=== PATIENT | female | born 1955 | race Caucasian/White ===

== ENCOUNTER → 2017-05-24 | Outpatient (CLI) | payer OTHER ==
[~2017-05-24] MED LIST: CIPRODEX 0.3%-7.5 M1 OT; CIPROFLOXACIN500 MG PO; LISINOPRIL10 MG PO; NASONEX0.05 MG/AC NS; PRAVACHOL10 MG PO; VICODIN 500 MG-1 TAB PO; ZYRTEC10 MG PO
== END | disposition home or self-care (01) ==
LOC: RAD 10:30
DX: M50.322 Other cervical disc degeneration at C5-C6 level (principal); M25.512 Pain in left shoulder

== ENCOUNTER → 2017-11-28 | Outpatient (CLI) | payer OTHER ==
[2017-11-28 17:12] LABS: BASO % 0.6 % (0.0-1.0); EOS # 0.1 10*3/uL (0.0-0.4); EOS % 1.5 % (1.0-4.0); HEMOGLOBIN 13.4 g/dl (12.0-16.0); LYMPH # 0.8 10*3/uL (1.3-4.4); LYMPH % 12.6 % (27.0-41.0); MEAN CELL VOLUME 90.3 fl (81.0-99.0); MEAN CORPUSCULAR HGB 29.5 pg (27.0-31.0); MEAN CORPUSCULAR HGB CONC 32.7 g/dl (33.0-37.0); MEAN PLATELET VOLUME 12.4 fl (9.6-12.3); MONO # 0.5 10*3/uL (0.1-1.0); MONO % 6.9 % (3.0-9.0); NEUT # 5.1 10*3/uL (2.3-7.9); NEUT % 78.2 % (47.0-73.0); PLATELET COUNT AUTOMATED 69 10*3/uL (130-400); RED BLOOD COUNT 4.54 10*6/uL (4.10-5.10); RED CELL DISTRI WIDTH 11.7 % (0-14.5); WHITE BLOOD COUNT 6.5 10*3/uL (4.8-10.8)
[2017-11-28 17:26] LABS: ALBUMIN 3.9 gm/dl (3.1-4.5); ALKALINE PHOSPHATASE 84 U/L (45-117); BUN 18 mg/dl (7-24); CHLORIDE 105 mmol/L (98-107); CHOLESTEROL 196 mg/dL (<200); CREATININE 0.96 mg/dL (0.55-1.02); HDL CHOLESTEROL 58 mg/dl (40-60); LDL CHOLESTEROL 76 mg/dL (9-159); POTASSIUM 4.3 mmol/L (3.5-5.1); SGOT/AST 20 IU/L (3-35); SGPT/ALT 27 U/L (12-78); SODIUM 141 mmol/L (136-145); TOTAL PROTEIN 7.3 gm/dL (6.4-8.2); TRIGLYCERIDES 308 mg/dl (<150); VLDL CHOLESTEROL 62 mg/dL (6-40)
== END | disposition home or self-care (01) ==
LOC: LAB 16:53 → MAMMO 17:00
PROVIDERS: Internal Medicine
DX: Z12.31 Encounter for screening mammogram for malignant neoplasm of breast (principal); I10 Essential (primary) hypertension; E78.2 Mixed hyperlipidemia

== ENCOUNTER → 2017-12-11 | Outpatient (CLI) | payer OTHER ==
[2017-12-11 14:13] LABS: BASO % 0.7 % (0.0-1.0); EOS # 0.1 10*3/uL (0.0-0.4); EOS % 1.6 % (1.0-4.0); HEMATOCRIT 40.9 % (37.0-47.0); HEMOGLOBIN 13.4 g/dl (12.0-16.0); LYMPH # 1.5 10*3/uL (1.3-4.4); LYMPH % 26.6 % (27.0-41.0); MEAN CELL VOLUME 88.7 fl (81.0-99.0); MEAN CORPUSCULAR HGB 29.1 pg (27.0-31.0); MEAN CORPUSCULAR HGB CONC 32.8 g/dl (33.0-37.0); MONO # 0.5 10*3/uL (0.1-1.0); MONO % 8.5 % (3.0-9.0); NEUT # 3.5 10*3/uL (2.3-7.9); NEUT % 62.1 % (47.0-73.0); PLATELET COUNT AUTOMATED 145 10*3/uL (130-400); RED BLOOD COUNT 4.61 10*6/uL (4.10-5.10); RED CELL DISTRI WIDTH 11.8 % (0-14.5); WHITE BLOOD COUNT 5.7 10*3/uL (4.8-10.8)
== END | disposition home or self-care (01) ==
LOC: LAB 13:27
PROVIDERS: Internal Medicine
DX: D69.6 Thrombocytopenia, unspecified (principal)

== ENCOUNTER → 2020-04-07 | Outpatient (CLI) | payer OTHER | END | disposition home or self-care (01) | LOC: MAMMO 14:57 | DX: Z12.31 Encounter for screening mammogram for malignant neoplasm of breast (principal) ==

== ENCOUNTER → 2020-09-14 | Outpatient (CLI) | payer OTHER | END | disposition home or self-care (01) | LOC: COVID19 11:30 | PROVIDERS: ATTEND Family Medicine | DX: R05 Cough (principal); Z20.828 Contact with and (suspected) exposure to other viral communicable diseases ==

== ENCOUNTER → 2021-07-19 | Outpatient (CLI) | payer OTHER | END | disposition home or self-care (01) | LOC: COVID19 17:20 | PROVIDERS: ATTEND Internal Medicine | DX: Z11.52 Encounter for screening for COVID-19 (principal) ==

== ENCOUNTER → 2022-03-10 | Outpatient (CLI) | payer OTHER | END | disposition home or self-care (01) | LOC: MAMMO 08:00 | PROVIDERS: ATTEND Family Medicine | DX: Z12.31 Encounter for screening mammogram for malignant neoplasm of breast (principal); N64.59 Other signs and symptoms in breast ==

== ENCOUNTER 2022-09-12 17:36 | Inpatient (IN) | payer OTHER ==
[~2022-09-12] VITALS: Ht 172.7 cm; Wt 74.2 kg
[~2022-09-12 17:36] MED LIST changes: +LEXAPRO5 M1 PO
[2022-09-12 17:52] VITALS: BP 113/66
[2022-09-12 19:10] VITALS: BP 118/70
[2022-09-12 20:15] LABS: CREATININE 1.39 mg/dL (0.55-1.02); POTASSIUM 2.6 mmol/L (3.5-5.1); TOTAL PROTEIN 5.5 gm/dL (6.4-8.2)
[2022-09-12 20:22] LABS: BILIRUBIN Negative (Negative); BLOOD 2+ (Negative); CLARITY Turbid (Clear); COLOR Dark Yellow (Yellow); GLUCOSE Negative (Negative); KETONE Trace (Negative); LEUKO ESTERASE 3+ (Negative); NITRITE Negative (Negative); SPECIFIC GRAVITY 1.015 (1.001-1.030)
[2022-09-12 20:36] LABS: WBC TNTC wbc/hpf (0-5)
[2022-09-12 20:41] LABS: MEAN CELL VOLUME 103.1 fl (81.0-99.0); MEAN CORPUSCULAR HGB 34.5 pg (27.0-31.0); MEAN CORPUSCULAR HGB CONC 33.5 g/dl (33.0-37.0); MEAN PLATELET VOLUME 13.4 fl (9.6-12.3); RED BLOOD COUNT 2.23 10*6/uL (4.10-5.10); RED CELL DISTRI WIDTH 16.1 % (0-14.5); WHITE BLOOD COUNT 6.2 10*3/uL (4.8-10.8)
[2022-09-12 20:47] LABS: MANUAL DIFF REFLEX YES; PLATELET COUNT AUTOMATED 8 10*3/uL (130-400)
[2022-09-12 21:01] LABS: BURR CELLS MODERATE; PLATELET SUFFICIENCY LOW (NORMAL); POLYCHROMASIA SLIGHT; TOTAL CELLS COUNTED 100 #CELLS
[2022-09-12 22:56] VITALS: BP 117/49
[2022-09-13] VITALS (25 sets, daily range): BP systolic 104–145; BP diastolic 48–81
[2022-09-13] MEDS ORDERED: LISINOPRIL20 MG PO (01:25)
[2022-09-13] MEDS ORDERED: ESCITALOPRAM OX10 MG PO (01:25)
[2022-09-13] MEDS ORDERED: POTASSIUM CHLO20 ME4 PO (01:26)
[2022-09-13] MEDS ORDERED: PRAVASTATIN SOD40 MG PO (01:27)
[2022-09-13 06:19] LABS: ACT PARTIAL THROMBO TIME 35.6 SECONDS (20.0-32.1); INTERNATIONAL NORM RATIO 1.6 (2.0-3.5)
[2022-09-13 06:31] LABS: CREATININE 1.21 mg/dL (0.55-1.02); FREE T4 1.34 ng/dl (0.76-1.46); POTASSIUM 3.2 mmol/L (3.5-5.1); TOTAL PROTEIN 4.9 gm/dL (6.4-8.2)
[2022-09-13 06:32] LABS: MEAN CELL VOLUME 103.5 fl (81.0-99.0); MEAN CORPUSCULAR HGB 34.2 pg (27.0-31.0); RED BLOOD COUNT 1.99 10*6/uL (4.10-5.10); RED CELL DISTRI WIDTH 16.3 % (0-14.5); WHITE BLOOD COUNT 5.5 10*3/uL (4.8-10.8)
[2022-09-13 06:36] LABS: THYROID STIM HORMONE (HS) 0.372 uIU/ml (0.358-4.75)
[2022-09-13 06:38] LABS: MANUAL DIFF REFLEX YES
[2022-09-13 06:42] LABS: HEMATOCRIT 20.6 % (37.0-47.0); PLATELET COUNT AUTOMATED 7 10*3/uL (130-400)
[2022-09-13 07:24] LABS: ATYPICAL LYMPHS 2 % (0-0); PLATELET SUFFICIENCY LOW (NORMAL); TOTAL CELLS COUNTED 100 #CELLS
[2022-09-13 07:25] LABS: OVALOCYTES FEW; POLYCHROMASIA SLIGHT; ROULEAUX SLIGHT; TOXIC GRANULATION MARKED; VACUOLATION OF NEUTROPHILS SLIGHT
[2022-09-13 08:29] LABS: VITAMIN D, 25-HYDROXY 34.1 ng/mL (30-100)
[2022-09-13 18:52] LABS: HEMATOCRIT 24.7 % (37.0-47.0); MEAN CORPUSCULAR HGB 34.1 pg (27.0-31.0); MEAN PLATELET VOLUME 12.5 fl (9.6-12.3); RED BLOOD COUNT 2.46 10*6/uL (4.10-5.10); RED CELL DISTRI WIDTH 17.7 % (0-14.5); WHITE BLOOD COUNT 6.8 10*3/uL (4.8-10.8)
[2022-09-13 18:53] LABS: MEAN CELL VOLUME 100.4 fl (81.0-99.0)
[2022-09-13 18:54] LABS: MANUAL DIFF REFLEX YES; PLATELET COUNT AUTOMATED 17 10*3/uL (130-400)
[2022-09-13 19:23] LABS: PLATELET SUFFICIENCY LOW (NORMAL); TOTAL CELLS COUNTED 100 #CELLS
[2022-09-13 19:24] LABS: POLYCHROMASIA SLIGHT
[2022-09-13 19:25] LABS: TOXIC GRANULATION MARKED
[2022-09-14] VITALS: BP 138/62
[2022-09-14 06:11] LABS: BUN 24 mg/dl (7-24); CHLORIDE 101 mmol/L (98-107); CREATININE 1.02 mg/dL (0.55-1.02); SODIUM 137 mmol/L (136-145)
[2022-09-14 06:31] LABS: RETICULOCYTE % 0.29 % (0.50-2.50)
[2022-09-14 06:39] LABS: HEMATOCRIT 22.3 % (37.0-47.0); MEAN CELL VOLUME 101.4 fl (81.0-99.0); MEAN CORPUSCULAR HGB 33.6 pg (27.0-31.0); MEAN CORPUSCULAR HGB CONC 33.2 g/dl (33.0-37.0); MEAN PLATELET VOLUME 10.8 fl (9.6-12.3); PLATELET COUNT AUTOMATED 34 10*3/uL (130-400); RED CELL DISTRI WIDTH 18.4 % (0-14.5); WHITE BLOOD COUNT 7.4 10*3/uL (4.8-10.8)
[2022-09-14 06:40] LABS: MANUAL DIFF REFLEX YES
[2022-09-14 07:31] LABS: ATYPICAL LYMPHS 1 % (0-0); OVALOCYTES FEW; PLATELET SUFFICIENCY LOW (NORMAL); POLYCHROMASIA SLIGHT; TOTAL CELLS COUNTED 100 #CELLS; TOXIC GRANULATION MARKED
[2022-09-14 07:32] LABS: ROULEAUX SLIGHT
[2022-09-14 08:00] VITALS: BP 153/74
[2022-09-14] MEDS ORDERED: POTASSIUM CHLO20 ME3 PO (11:28)
[2022-09-14] MEDS ORDERED: CEFUROXIME AXE500 MG PO (11:30)
[2022-09-14 12:00] VITALS: BP 140/69
== END 2022-09-14 15:29 | disposition home or self-care (01) | DRG 689 ==
LOC: ED 17:36 → 5E 23:45 → EDHOLD 23:45 → 5E 09-13 00:12
PROVIDERS: Emergency Medicine; Internal Medicine; Registered Nurse; Student in an Organized Health Care Education/Training Program; ADMIT Internal Medicine; ATTEND Internal Medicine
PROC: 30233R1 Transfusion of Nonautologous Platelets into Peripheral Vein, Percutaneous Approach (ICD-10-PCS; principal; 2022-09-13)
PROC: 30233N1 Transfusion of Nonautologous Red Blood Cells into Peripheral Vein, Percutaneous Approach (ICD-10-PCS; 2022-09-13)
DX: N30.01 Acute cystitis with hematuria (principal); E43 Unspecified severe protein-calorie malnutrition; N17.0 Acute kidney failure with tubular necrosis; E87.1 Hypo-osmolality and hyponatremia; D53.9 Nutritional anemia, unspecified; E83.42 Hypomagnesemia; F41.9 Anxiety disorder, unspecified; E87.6 Hypokalemia; I10 Essential (primary) hypertension; F32.9 Major depressive disorder, single episode, unspecified; D69.6 Thrombocytopenia, unspecified; E80.6 Other disorders of bilirubin metabolism; E87.8 Other disorders of electrolyte and fluid balance, not elsewhere classified; R73.9 Hyperglycemia, unspecified; C50.412 Malignant neoplasm of upper-outer quadrant of left female breast; F32.A Depression, unspecified; Z85.3 Personal history of malignant neoplasm of breast; Z92.21 Personal history of antineoplastic chemotherapy; Z82.49 Family history of ischemic heart disease and other diseases of the circulatory system; Z81.8 Family history of other mental and behavioral disorders; Z68.24 Body mass index [BMI] 24.0-24.9, adult

== ENCOUNTER → 2022-12-13 | Outpatient (CLI) | payer OTHER ==
[~2022-12-13] MED LIST changes: +CEFUROXIME AXE500 MG PO; +ESCITALOPRAM OX10 MG PO; +LISINOPRIL20 MG PO; +POTASSIUM CHLO20 ME3 PO; +POTASSIUM CHLO20 ME4 PO; +PRAVASTATIN SOD40 MG PO
== END | disposition home or self-care (01) ==
LOC: CARD 11:30
PROVIDERS: ATTEND Internal Medicine Hematology & Oncology
DX: C50.912 Malignant neoplasm of unspecified site of left female breast (principal); D70.1 Agranulocytosis secondary to cancer chemotherapy; Z45.2 Encounter for adjustment and management of vascular access device; E86.0 Dehydration; R11.0 Nausea; Z51.12 Encounter for antineoplastic immunotherapy; Z51.11 Encounter for antineoplastic chemotherapy; I35.0 Nonrheumatic aortic (valve) stenosis

== ENCOUNTER 2024-01-02 18:44 | Inpatient (IN) | payer MEDICARE ==
[~2024-01-02] VITALS: Ht 177.8 cm; Wt 91.0 kg
[2024-01-02 19:06] VITALS: BP 184/87
[2024-01-02 19:19] LABS: BASO % 0.5 % (0.0-1.0); EOS # 0.1 10*3/uL (0.0-0.4); EOS % 1.1 % (1.0-4.0); LYMPH # 1.1 10*3/uL (1.3-4.4); LYMPH % 18.2 % (27.0-41.0); MEAN CELL VOLUME 93.4 fl (81.0-99.0); MEAN CORPUSCULAR HGB 29.4 pg (27.0-31.0); MEAN CORPUSCULAR HGB CONC 31.5 g/dl (33.0-37.0); MEAN PLATELET VOLUME 10.8 fl (9.6-12.3); MONO # 0.4 10*3/uL (0.1-1.0); MONO % 6.6 % (3.0-9.0); NEUT # 4.5 10*3/uL (2.3-7.9); NEUT % 73.3 % (47.0-73.0); PLATELET COUNT AUTOMATED 104 10*3/uL (130-400); RED BLOOD COUNT 4.39 10*6/uL (4.10-5.10); RED CELL DISTRI WIDTH 12.2 % (0-14.5); WHITE BLOOD COUNT 6.2 10*3/uL (4.8-10.8)
[2024-01-02] MEDS ORDERED: PRAVASTATIN SOD40 MG PO (19:24)
[2024-01-02] MEDS ORDERED: NEURONTIN300 MG PO (19:25)
[2024-01-02 19:34] VITALS: BP 193/87
[2024-01-02 19:39] LABS: ACT PARTIAL THROMBO TIME 23.6 SECONDS (20.0-32.1)
[2024-01-02 19:40] LABS: ALKALINE PHOSPHATASE 96 U/L (46-116); BUN 19 mg/dl (9-23); CHLORIDE 106 mmol/L (98-107); LIPASE 35 U/L (12-53); POTASSIUM 3.9 mmol/L (3.4-5.1); SGPT/ALT 11 U/L (5-49); TOTAL PROTEIN 6.9 gm/dL (6.0-8.0)
[2024-01-02 20:54] VITALS: BP 183/88
[2024-01-02 21:24] LABS: BILIRUBIN Negative (Negative); BLOOD Negative (Negative); CLARITY Clear (Clear); COLOR Yellow (Yellow); GLUCOSE Negative (Negative); KETONE Negative (Negative); LEUKO ESTERASE Negative (Negative); NITRITE Negative (Negative); PH 5.5 (4.5-8.0); SPECIFIC GRAVITY <= 1.005 (1.001-1.030); UROBILINOGEN 0.2 E.U./dl (0.0-1.0)
[2024-01-02 21:40] LABS: HYALINE CAST 0-2; RBC 0-2 rbc/hpf (0-2); WBC 0-2 wbc/hpf (0-5)
[2024-01-02] MEDS ORDERED: Ondansetron Hydrochloride 4 MG/2 ML VIAL IV PRN (22:50)
[2024-01-02] MEDS ORDERED: BISACODYL 10 MG SUPP R PRN (22:50)
[2024-01-02] MEDS ORDERED: BISACODYL 5 MG TAB PO PRN (22:50)
[2024-01-02] MEDS ORDERED: TEMAZEPAM 15 MG CAP PO PRN (22:50)
[2024-01-02] MEDS ORDERED: ACETAMINOPHEN 325 MG TAB PO PRN (22:50)
[2024-01-02 22:56] VITALS: BP 186/78
[2024-01-02] MEDS ORDERED: IOHEXOL 350 MG/ML 100 ML VIAL IV ONE ×2 (23:05→23:23)
[2024-01-02] MEDS ORDERED: SODIUM CHLORIDE 0.9% 100 ML BAG IV ONE (23:05)
[2024-01-02 23:15] VITALS: BP 169/97
[2024-01-02] MEDS ORDERED: SODIUM CHLORIDE 0.9% 100 ML IV ONE (23:22)
[2024-01-03 06:41] LABS: BASO % 0.5 % (0.0-1.0); EOS # 0.1 10*3/uL (0.0-0.4); EOS % 0.8 % (1.0-4.0); HEMATOCRIT 42.3 % (37.0-47.0); LYMPH # 1.7 10*3/uL (1.3-4.4); LYMPH % 21.8 % (27.0-41.0); MEAN CELL VOLUME 92.6 fl (81.0-99.0); MEAN CORPUSCULAR HGB 29.1 pg (27.0-31.0); MEAN CORPUSCULAR HGB CONC 31.4 g/dl (33.0-37.0); MEAN PLATELET VOLUME 11.2 fl (9.6-12.3); MONO # 0.6 10*3/uL (0.1-1.0); MONO % 8.1 % (3.0-9.0); NEUT # 5.3 10*3/uL (2.3-7.9); NEUT % 68.5 % (47.0-73.0); PLATELET COUNT AUTOMATED 115 10*3/uL (130-400); RED BLOOD COUNT 4.57 10*6/uL (4.10-5.10); RED CELL DISTRI WIDTH 12.4 % (0-14.5); WHITE BLOOD COUNT 7.7 10*3/uL (4.8-10.8)
[2024-01-03 06:50] LABS: POTASSIUM 4.3 mmol/L (3.4-5.1)
[2024-01-03 08:00] VITALS: BP 176/83
[2024-01-03] MEDS ORDERED: PRAVASTATIN SODIUM 40 MG TAB PO SCH (10:00)
[2024-01-03] MEDS ORDERED: Enoxaparin Sodium 40 MG/0.4 ML SYR SC SCH (10:00)
[2024-01-03] MEDS ORDERED: LISINOPRIL 20 MG TAB PO SCH (10:00)
[2024-01-03] MEDS ORDERED: ASPIRIN ENTERIC COATED 81 MG TAB PO SCH (10:00)
[2024-01-03] MEDS ORDERED: Clopidogrel Hydrogen Sulfate 75 MG TAB PO SCH (10:00)
[2024-01-03 12:00] VITALS: BP 155/85
[2024-01-03] MEDS ORDERED: ATORVASTATIN CALCIUM 10 MG TAB PO SCH (22:00)
[2024-01-03] MEDS ORDERED: GABAPENTIN 300 MG CAP PO SCH (22:00)
== END 2024-01-03 16:36 | disposition home or self-care (01) | DRG 70 ==
LOC: ED 18:44 → 4E 22:22 → EDHOLD 22:22 → 4E 22:56
PROVIDERS: Emergency Medicine; Internal Medicine; ADMIT Family Medicine; ATTEND Family Medicine
DX: G45.4 Transient global amnesia (principal); G93.41 Metabolic encephalopathy; R47.01 Aphasia; I16.1 Hypertensive emergency; N18.30 Chronic kidney disease, stage 3 unspecified; G44.89 Other headache syndrome; E78.2 Mixed hyperlipidemia; D69.6 Thrombocytopenia, unspecified; N18.31 Chronic kidney disease, stage 3a; I12.9 Hypertensive chronic kidney disease with stage 1 through stage 4 chronic kidney disease, or unspecified chronic kidney disease; Z82.49 Family history of ischemic heart disease and other diseases of the circulatory system; Z82.0 Family history of epilepsy and other diseases of the nervous system

== ENCOUNTER 2024-02-24 10:56 | Inpatient (IN) | payer MEDICARE ==
[~2024-02-24] VITALS: Ht 172.7 cm; Wt 86.2 kg
[~2024-02-24 10:56] MED LIST changes: +NEURONTIN300 MG PO
[2024-02-24 11:32] VITALS: BP 140/730
[2024-02-24] MEDS ORDERED: Lidocaine Hydrochloride 15 ML UDC PO STA (11:45)
[2024-02-24] MEDS ORDERED: MG-AL HYDROXIDE/SIMETICONE 30 ML UDC PO STA (11:45)
[2024-02-24] MEDS ORDERED: Dicyclomine Hydrochloride 20 MG/10 ML OSYR PO STA (11:45)
[2024-02-24 12:15] LABS: BASO % 0.4 % (0.0-1.0); EOS # 0.1 10*3/uL (0.0-0.4); EOS % 0.7 % (1.0-4.0); HEMATOCRIT 40.8 % (37.0-47.0); LYMPH # 0.7 10*3/uL (1.3-4.4); LYMPH % 9.6 % (27.0-41.0); MEAN CELL VOLUME 93.8 fl (81.0-99.0); MEAN CORPUSCULAR HGB 29.7 pg (27.0-31.0); MEAN CORPUSCULAR HGB CONC 31.6 g/dl (33.0-37.0); MONO # 0.5 10*3/uL (0.1-1.0); MONO % 7.2 % (3.0-9.0); NEUT # 6.1 10*3/uL (2.3-7.9); NEUT % 81.8 % (47.0-73.0); PLATELET COUNT AUTOMATED 108 10*3/uL (130-400); RED BLOOD COUNT 4.35 10*6/uL (4.10-5.10); RED CELL DISTRI WIDTH 12.5 % (0-14.5); WHITE BLOOD COUNT 7.4 10*3/uL (4.8-10.8)
[2024-02-24 13:12] VITALS: BP 155/74
[2024-02-24] MEDS ORDERED: SODIUM CHLORIDE 0.9% 1,000 ML IV ONE (14:10)
[2024-02-24] MEDS ORDERED: ACETAMINOPHEN 650 MG SUPP R PRN (16:30)
[2024-02-24] MEDS ORDERED: Ondansetron Hydrochloride 4 MG/2 ML VIAL IV PRN (16:30)
[2024-02-24] MEDS ORDERED: ACETAMINOPHEN 325 MG TAB PO PRN (16:30)
[2024-02-24] MEDS ORDERED: BISACODYL 5 MG TAB PO PRN (16:30)
[2024-02-24] MEDS ORDERED: BISACODYL 10 MG SUPP R PRN (16:30)
[2024-02-24] MEDS ORDERED: Magnesium Hydroxide 30 ML UDC PO PRN (16:30)
[2024-02-24] MEDS ORDERED: Acetaminophen/Hydrocodone 5 MG/325 MG TABLET PO PRN (16:30)
[2024-02-24] MEDS ORDERED: SODIUM CHLORIDE 0.9% 1,000 ML IV SCH (16:40)
[2024-02-24 18:00] VITALS: BP 146/99
[2024-02-24] MEDS ORDERED: HYDROmorphONE Hydrochloride 0.5 MG/0.5 ML SYRINGE IV PRN (18:15)
[2024-02-24 20:00] VITALS: BP 148/71
[2024-02-24] MEDS ORDERED: GABAPENTIN 300 MG CAP PO SCH (22:00)
[2024-02-25] VITALS: BP 153/63
[2024-02-25 07:46] LABS: BASO % 0.3 % (0.0-1.0); EOS # 0.1 10*3/uL (0.0-0.4); EOS % 0.7 % (1.0-4.0); HEMATOCRIT 36.3 % (37.0-47.0); LYMPH # 0.9 10*3/uL (1.3-4.4); LYMPH % 12.5 % (27.0-41.0); MEAN CELL VOLUME 93.3 fl (81.0-99.0); MEAN CORPUSCULAR HGB 29.3 pg (27.0-31.0); MEAN CORPUSCULAR HGB CONC 31.4 g/dl (33.0-37.0); MEAN PLATELET VOLUME 11.4 fl (9.6-12.3); MONO # 0.7 10*3/uL (0.1-1.0); MONO % 9.6 % (3.0-9.0); NEUT # 5.4 10*3/uL (2.3-7.9); NEUT % 76.8 % (47.0-73.0); PLATELET COUNT AUTOMATED 97 10*3/uL (130-400); RED BLOOD COUNT 3.89 10*6/uL (4.10-5.10); RED CELL DISTRI WIDTH 12.7 % (0-14.5)
[2024-02-25 08:00] VITALS: BP 147/89
[2024-02-25 08:25] LABS: VITAMIN D, 25-HYDROXY 64.5 ng/mL (30-100)
[2024-02-25 08:27] LABS: ALKALINE PHOSPHATASE 119 U/L (46-116); BUN 13 mg/dl (9-23); CHLORIDE 109 mmol/L (98-107); CHOLESTEROL 161 mg/dL (<200); FREE T4 1.03 ng/dl (0.89-1.76); LDL CHOLESTEROL 82 mg/dL (9-159); POTASSIUM 3.9 mmol/L (3.4-5.1); SGPT/ALT 159 U/L (5-49); TOTAL PROTEIN 5.9 gm/dL (6.0-8.0); TRIGLYCERIDES 80 mg/dl (<150)
[2024-02-25] MEDS ORDERED: SIMVASTATIN 20 MG TAB PO SCH (10:00)
[2024-02-25] MEDS ORDERED: Enoxaparin Sodium 40 MG/0.4 ML SYR SC SCH (10:00)
[2024-02-25] MEDS ORDERED: ESCITALOPRAM OXALATE 10 MG TAB PO SCH (10:00)
[2024-02-25 12:00] VITALS: BP 151/71
[2024-02-25 16:00] VITALS: BP 152/74
[2024-02-25 20:00] VITALS: BP 141/86
[2024-02-26] VITALS: BP 125/67
[2024-02-26 06:13] LABS: BASO % 0.4 % (0.0-1.0); EOS # 0.1 10*3/uL (0.0-0.4); EOS % 1.6 % (1.0-4.0); HEMATOCRIT 37.8 % (37.0-47.0); LYMPH % 18.5 % (27.0-41.0); MEAN CELL VOLUME 94.3 fl (81.0-99.0); MEAN CORPUSCULAR HGB 29.7 pg (27.0-31.0); MEAN CORPUSCULAR HGB CONC 31.5 g/dl (33.0-37.0); MEAN PLATELET VOLUME 11.6 fl (9.6-12.3); MONO # 0.5 10*3/uL (0.1-1.0); MONO % 8.5 % (3.0-9.0); NEUT # 3.9 10*3/uL (2.3-7.9); NEUT % 70.6 % (47.0-73.0); PLATELET COUNT AUTOMATED 86 10*3/uL (130-400); RED BLOOD COUNT 4.01 10*6/uL (4.10-5.10); RED CELL DISTRI WIDTH 12.3 % (0-14.5); WHITE BLOOD COUNT 5.6 10*3/uL (4.8-10.8)
[2024-02-26 06:40] LABS: BUN 10 mg/dl (9-23); CHLORIDE 108 mmol/L (98-107); LIPASE 233 U/L (12-53); POTASSIUM 3.7 mmol/L (3.4-5.1)
[2024-02-26 08:00] VITALS: BP 157/50
[2024-02-26] MEDS ORDERED: CALCIUM (TUMS) 500MG PO PRN (08:35)
[2024-02-26] MEDS ORDERED: HYDROCODONE-AC1 EAC1 PO (11:29)
[2024-02-26 12:00] VITALS: BP 186/70
== END 2024-02-26 13:50 | disposition home or self-care (01) | DRG 440 ==
LOC: ED 10:56 → EDHOLD 16:00 → 4E 16:00
PROVIDERS: Physician Assistant Medical; Student in an Organized Health Care Education/Training Program; ADMIT Internal Medicine; ATTEND Internal Medicine
DX: K85.90 Acute pancreatitis without necrosis or infection, unspecified (principal); R74.01 Elevation of levels of liver transaminase levels; F41.8 Other specified anxiety disorders; E78.5 Hyperlipidemia, unspecified; F41.1 Generalized anxiety disorder; F32.9 Major depressive disorder, single episode, unspecified; I12.9 Hypertensive chronic kidney disease with stage 1 through stage 4 chronic kidney disease, or unspecified chronic kidney disease; R73.9 Hyperglycemia, unspecified; E80.6 Other disorders of bilirubin metabolism; R74.8 Abnormal levels of other serum enzymes; D69.6 Thrombocytopenia, unspecified; N18.31 Chronic kidney disease, stage 3a; Z82.49 Family history of ischemic heart disease and other diseases of the circulatory system; Z81.8 Family history of other mental and behavioral disorders; Z80.3 Family history of malignant neoplasm of breast

== ENCOUNTER 2025-09-21 12:54 | Emergency (ER) | payer MEDICARE ==
[~2025-09-21 12:54] MED LIST changes: +HYDROCODONE-AC1 EAC1 PO
[2025-09-21 14:06] LABS: BASO # 0.0 10*3/uL (0.0-0.1); BASO % 0.2 % (0.0-1.0); EOS # 0.0 10*3/uL (0.0-0.4); EOS % 0.1 % (1.0-4.0); MEAN CELL VOLUME 93.2 fl (81.0-99.0); MEAN CORPUSCULAR HGB 30.2 pg (27.0-31.0); MEAN PLATELET VOLUME 11.5 fl (9.6-12.3); MONO # 0.4 10*3/uL (0.1-1.0); MONO % 4.1 % (3.0-9.0); NEUT # 8.5 10*3/uL (2.3-7.9); NEUT % 89.0 % (47.0-73.0); NUCLEATED RED BLOOD CELL 0.0 % (0.0-0.0); NUCLEATED RED BLOOD CELL 0.0 10*3/uL (0.0-0.0); PLATELET COUNT AUTOMATED 117 10*3/uL (130-400); RED CELL DISTRI WIDTH 11.9 % (0-14.5)
[2025-09-21 14:24] LABS: BUN 14.0 mg/dl (9-23)
== END 2025-09-21 16:36 | disposition home or self-care (01) ==
LOC: ED 12:54
PROVIDERS: Internal Medicine
DX: K59.00 Constipation, unspecified (principal); I10 Essential (primary) hypertension; E78.00 Pure hypercholesterolemia, unspecified